=== PATIENT | male | born 1950 | race Caucasian/White ===

== ENCOUNTER 2019-04-28 15:40 | Emergency (ER) | payer OTHER, BC ==
[~2019-04-28] VITALS: Ht 182.9 cm; Wt 77.1 kg
[2019-04-28 16:04] VITALS: Ht 182.9 cm; Wt 77.1 kg
[2019-04-28 17:36] LABS: BASOPHIL % 0.2 % (0-2); PLATELET COUNT 144 x10^3mcL (130-400)
[2019-04-28 17:37] LABS: RED CELL DISTRIBUTION WIDTH 15.9 % (11.5-14.5)
[2019-04-28 18:00] LABS: CARBON DIOXIDE 29.1 mmol/L (21-32); CHLORIDE SERUM 99 mmol/L (98-107); CREATININE SERUM 2.3 mg/dL (0.7-1.3); GLUCOSE SERUM 74 mg/dL (74-106); POTASSIUM SERUM 3.3 mmol/L (3.5-5.1); SODIUM SERUM 138 mmol/L (136-145)
[2019-04-28 18:17] LABS: ALKALINE PHOSPHATASE 123 U/L (46-116); ALT/SGPT 21 U/L (16-63); AST/SGOT 80 U/L (15-37); BILIRUBIN TOTAL 1.29 mg/dL (0.20-1.00); TOTAL PROTEIN, SERUM 5.9 g/dL (6.4-8.2)
[2019-04-28 18:18] LABS: MAGNESIUM 1.3 mg/dL (1.8-2.4)
[2019-04-28 20:07] VITALS: BP 110/56
== END 2019-04-28 22:39 | disposition left against medical advice (07) ==
LOC: ED 15:40
PROVIDERS: Emergency Medicine
DX: A41.9 Sepsis, unspecified organism (principal); R65.20 Severe sepsis without septic shock; J18.9 Pneumonia, unspecified organism; K52.9 Noninfective gastroenteritis and colitis, unspecified; R79.89 Other specified abnormal findings of blood chemistry; I10 Essential (primary) hypertension; E11.9 Type 2 diabetes mellitus without complications; E78.00 Pure hypercholesterolemia, unspecified; Z85.828 Personal history of other malignant neoplasm of skin
CPT/HCPCS: 82962; 87804; J0696; J7030; J7060; Q0092